=== PATIENT | female | born 1980 | race Caucasian/White ===

== ENCOUNTER → 2021-10-14 | Outpatient (CLI) | payer OTHER ==
[~2021-10-14] MED LIST: BUPRENORPHIN-N1 EACH SL; COLACE 100MG C100 MG PO; IBUPROFEN600 MG PO; SUBUTEX 8 MG TAB8 MG SL; VITAFOL-OB+DHA1 EACH PO
== END ==
LOC: HEART 5 10:22
DX: R06.00 Dyspnea, unspecified (principal); I08.1 Rheumatic disorders of both mitral and tricuspid valves
CPT/HCPCS: 71046; 93306

== ENCOUNTER → 2022-04-16 | Outpatient (CLI) | payer OTHER | LOC: HEART 5 13:00 | DX: R07.9 Chest pain, unspecified (principal) ==